=== PATIENT | male | born 1980 | race Caucasian/White ===

== ENCOUNTER 2016-12-27 18:50 | Emergency (ER) | payer MEDICAID ==
[~2016-12-27] VITALS: Ht 175.3 cm; Wt 95.0 kg
[2016-12-27 18:54] VITALS: BP 156/102
[2016-12-27] MEDS ORDERED: KETOROLAC 30 MG/1 ML IM ONE (20:00)
== END 2016-12-27 21:14 | disposition home or self-care (01) ==
LOC: ED 21:00
DX: S86.911A Strain of unspecified muscle(s) and tendon(s) at lower leg level, right leg, initial encounter (principal); I10 Essential (primary) hypertension; F41.9 Anxiety disorder, unspecified; G89.11 Acute pain due to trauma; X50.1XXA Overexertion from prolonged static or awkward postures, initial encounter; Y93.67 Activity, basketball; Y92.89 Other specified places as the place of occurrence of the external cause; Y99.8 Other external cause status
CPT/HCPCS: 93971; 96372; 99284; J1885

== ENCOUNTER 2019-11-18 19:46 | Emergency (ER) | payer BC, MEDICAID ==
[~2019-11-18] VITALS: Ht 175.3 cm; Wt 95.3 kg
[2019-11-18 19:53] VITALS: BP 159/86
== END 2019-11-18 20:54 | disposition home or self-care (01) ==
LOC: ED 20:30
DX: M79.89 Other specified soft tissue disorders (principal); Z11.59 Encounter for screening for other viral diseases; I10 Essential (primary) hypertension; F17.200 Nicotine dependence, unspecified, uncomplicated
CPT/HCPCS: 36415; 87635; 99283